=== PATIENT | male | born 1955 | race Caucasian/White ===

== ENCOUNTER 2020-03-30 20:54 | Emergency (ER) | payer MEDICARE, MEDICAID, SELFPAY ==
[2020-03-30 20:55] VITALS: BP 132/86; PULSE 111; RESP 20; TEMP 37.1; O2SAT 100; BMI 19.3
--- NOTE | 2020-03-30 21:01 | XR_ITS ---
WS: [id number] XR chest 1V portable [id number] REASON FOR EXAM: sob FINDINGS: Prominent mass defect in the left lung is again noted. Compared to previous exam of January 262018 there is now evidence of extensive left pleural effusion. The right lung shows hyperaeration and changes of emphysema. A PICC line is seen extending from the right side. XR/XR chest 1V portable [id number] IMPRESSION: PICC line in good position. Mass in the left upper lung increased since previous exam Left pleural effusion
--- NOTE | 2020-03-30 21:02 | ED_ITS ---
HPI - SOB/Dyspnea General: Chief Complaint: Shortness of Breath/Dyspnea Stated Complaint: RESPIRATORY DISTRESS Time Seen by Provider: 03/30/20 20:57 Source: patient and EMS Mode of arrival: EMS Limitations: no limitations History of Present Illness: HPI Narrative: 64-year-old male with a history of lung cancer. Patient had 4 doses of chemotherapy 1 year ago and states he no lo nger receives any treatment. He states oncologist wanted him to do radiation but he refused. He states he has been having increasing shortness of breath over the last month with it getting much worse over the last week. Patient came in by EMS and oxygen saturation on room air was 95%. He states he just has had increasing difficulty to breathe. He is a smoker and has a history of COPD as well. Patient is able speak in full senses here and has no acute distress. MD elicited complaint: shortness of breath Pertinent past history: COPD Onset (ago): day(s) Associated symptoms: Deny abdominal pain, chest pain, fever(s), nausea or vomiting Review of Systems Const: Denies: fever(s), chills, body aches or change in appetite Eyes: Denies: blurry vision or eye discomfort ENMT: Denies: throat pain or dental pain Card: Denies: chest pain Resp: Reports: dyspnea GI: Denies: abdominal pain, nausea, vomiting or diarrhea : Denies: dysuria Musc: Denies: neck pain or back pain Skin/Breast: Denies: rash Neuro: Denies: headache(s) Psych: Denies: depression Suresh/Lymph: Denies: easy bruising All/Imm: Denies: urticaria PFSH ED PFSH: Social History Smoking and tobacco status: former smoker Physical Exam Const: COMMON NORMALS: no acute distress and patient oriented x3 GENERAL APPEARANCE: ill appearing and frail appearing HENMT: COMMON NORMALS: normocephalic and atraumatic HEAD & SCALP: normocephalic and atraumatic Eye: COMMON NORMALS: Equal, round and reactive pupils present and EOMs intact bilaterally PUPIL: Yes Equal, round and reactive pupils present Neck/C-Spine: COMMON NORMALS: full ROM and supple Chest: COMMONS NORMALS: normal inspection of the chest and normal palpation of entire chest wall Resp: COMMON NORMALS: normal respiratory effort, No retractions and No use of accessory muscles AUSCULTATION: wheezes Cardio: COMMON NORMALS: regular rate, regular rhythm and No murmurs present (Cardio) RATE: regular rate RHYTHM: regular rhythm GI: COMMON NORMALS: Normal to inspection, nondistended, normoactive bowel sounds present, Soft to palpation, non-tender and no masses PALPATION: Yes Soft to palpation Extremity: COMMON NORMALS: normal to inspection and full ROM Neuro: COMMON NORMALS: patient oriented x3, moves all extremities and no focal motor deficits Psych: COMMON NORMALS: mental status grossly normal, Normal thought process present and cooperative THOUGHT PROCESS: Normal thought process present Skin: COMMON NORMALS: no rashes or lesions noted and no wounds GENERAL SKIN EXAM: no rashes or lesions noted Course Vital Signs: Vital signs: Vital Signs Temperature 98.7 F 03/30/20 20:55 Pulse Rate 104 H 03/31/20 02:03 Respiratory Rate 18 03/31/20 02:03 Blood Pressure 128/78 03/31/20 02:03 Pulse Oximetry 98 03/31/20 00:45 MDM - SOB/Dyspnea MDM Narrative: Medical decision making narrative: Patient presents with shortness of breath likely from pleural effusion with large lung mass and pneumonia. Strongly recommended admission state patient refused and signed out AMA. Patient understands risks and has decision-making capacity. We will have him follow-up with pulmonology and start him on antibiotics. He is return if worsening. Lab Data: Labs: Lab Results 03/30/20 03/30/20 03/30/20 Range/Units 21:24 21:24 21:24 WBC 12.5 H (4.0-10.0) 10^3/ uL RBC 3.70 L (4.1-5.3) 10^6/u L Hgb 9.3 L (11.7-16.6) g/dL Hct 30.3 L (42.0-52.0) % MCV 81.9 (80-94) fL MCH 25.1 L (28.0-34.0) pg MCHC 30.7 (30.0-36.0) g/dL RDW 17.3 H (12.1-15.1) % Plt Count 415 H (130-400) 10^3/c mm MPV 8.6 (7.4-10.4) fL Neut % (Auto) 77.3 % Lymph % (Auto) 15.1 % [place] % (Auto) 6.4 % Eos % (Auto) 0.6 % Baso % (Auto) 0.2 % Neut # (Auto) 9.7 H (1.8-7.7) 10^3/u L Lymph # (Auto) 1.9 (0.8-4.8) 10^3/u L [place] # (Auto) 0.8 (0.2-0.9) 10^3/u L Eos # (Auto) 0.1 (0.0-0.8) 10^3/u L Baso # (Auto) 0.0 (0.0-0.1) 10^3/u L Nucleated RBC % (a uto) 0 % Nucleated RBCs # 0.0 /100WBC PT 14.20 H (10.5-13.3) SECO NDS INR 1.07 (0.8-1.2) D-Dimer 0.74 H (0-0.59) ug/mIFE U Sodium 127 L (136-145) mmol/L Potassium 4.8 (3.5-5.1) mmol/L Chloride 91 L (98-107) mmol/L Carbon Dioxide 25 (22-29) mmol/L Anion Gap 15.8 (5-19) BUN 7 L (8-23) mg/dL Creatinine 0.4 L (0.7-1.2) mg/dL GFR Calculation 215.2 H (90-130) mL/min Glucose 179 H (65-115) mg/dL Calculated Osmolal ity 264 L (285-295) mOsm/k g Calcium 10.4 (8.5-10.5) mg/dL Total Bilirubin 0.4 (0.15-1.2) mg/dL AST 8 (0-40) U/L ALT 8 (0-41) U/L Alkaline Phosphata se 191 H (40-130) IU/L NT-Pro-B Natriuret Pep 2712 H (0-125) pg/mL Total Protein 6.2 L (6.6-8.7) g/dL Albumin 3.2 L (3.5-5.2) g/dL Globulin 3.0 (1.3-4.6) g/dL Imaging Data^: CT Chest: Radiologist's impression: [facility] [address] [place] [address] CT Scan Report Signed Patient: Bigg De La Torre Unit #: [id number] : 1955 Age/Sex: 64 / M ADM Date: 03/30/20 Loc: ER Room/Bed: Attending Dr: Ordering Provider/Ordering MD: Mellisa Fernando MD Date of Service: 03/30/20 Procedure(s): CT angio chest PE protcl [id number] Accession Number(s): [id number] Report Number: [id number] PROCEDURE INFORMATION: Exam: CT Angiography Chest With Contrast Exam date and time: 03/30/2020 10:35 PM Age: 64 years old Clinical indication: Dyspnea and shortness of breath; Prior surgery; Surgery type: Port; Patient HX: HX lung CA TECHNIQUE: Imaging protocol: Computed tomographic angiography of the chest with intravenous contrast. 3D rendering: MIP and/or 3D reconstructed images were created by the technologist. Radiation optimization: All CT scans at this facility use at least one of these dose optimization techniques: automated exposure control; mA and/or kV adjustment per patient size (includes targeted exams where dose is matched to clinical indication); or iterative reconstruction. Contrast material: VIOLETTA 350; Contrast volume: 95 ml; Contrast route: 20G; COMPARISON: CT chest w con* [id number] 12/21/2018 3:55 PM RADIATION DOSE METRICS: Total DLP: 621.3 mGy-cm FINDINGS: Tubes, catheters and devices: Right chest port line tip is in the mid SVC. Pulmonary arteries: High-grade stenosis of the superior lingual segmental pulmonary artery (see series 2, image 244). There is adequate contrast opacification of the pulmonary arteries for evaluation to the subsegmental level. There is no filling defect to suggest embolism. Aorta: There is severe aortic atherosclerotic disease. There is extensive ulcerated plaque in the aortic arch and distal descending aorta. No aneurysm or dissection. Lungs: Multiple peripherally enhancing lung masses with surrounding consolidation. The largest is a left lower lobe mass measuring 6.3 x 5.4 cm on axial series 2, image 323. There are additional lesions in the left upper lobe and in the left hilum. There is severe upper lung predominant centrilobular emphysema. There is a macro lobulated spiculated mass in the right upper lobe measuring 3.2 x 2.2 cm on axial series 2, image 211. There is mild interlobular septal thickening in the right lung base. There is diffuse central bronchial wall thickening in the right lung. Pleural space: Moderate size loculated left pleural effusion. Trace right pleural effusion. Heart: There is moderate cardiac enlargement. There is asymmetric enlargement of the left ventricle. There is no pericardial effusion. There is moderate coronary artery calcification. Circumflex coronary artery stent noted. Lymph nodes: No enlarged discrete mediastinal or hilar nodes. There is confluent soft tissue density in the left hilum extending into the subcarinal region. Spleen: Splenic size is normal. There are scattered calcifications consistent with healed granulomas. Adrenals: There is hypertrophy of the left adrenal gland. Bones/joints: Unremarkable. No acute fracture. Soft tissues: Unremarkable. CT/CT angio chest PE protcl [id number] IMPRESSION: 1. 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 Findings are markedly progressive since 12/21/2018. 2. No pulmonary embolism. 3. Mild interstitial edema. 4. Increased size of a spiculated right upper lobe mass since 12/21/2018, also consistent with a neoplastic lesion. 5. Large loculated left pleural effusion. 6. Trace right pleural effusion. 7. Severe aortic atherosclerotic disease with extensive ulcerated plaque in the thoracic and upper abdominal aorta. EKG Data^: EKG 1: Attestation: I personally reviewed and interpreted this EKG as follows: EKG Interpretation Date: 03/30/20 EKG interpretation time: 21:06 Interpretation: Has tach heart rate [address] or T wave abnormalities QRS 109 QTc 387 Discharge Plan Discharge Patient Disposition: Home, Self-Care Clinical Impression: Lung mass, Pneumonia, Pleural effusion Condition: Stable Prescriptions: New Levaquin 750 mg tablet 750 mg PO DAILY 7 Days RF: 0 Discharge Orders: Discharge Order (Routine); Ordered 03/31/20 Ordered By: Mellisa Fernando Referrals: Bry Bond [Primary Care Provider] - Deacon Elliott MD [Physician] - 4-7 days Discharge Diet: Advance as tolerated Discharge Activity: Resume usual activity Patient Instructions: Pleural Effusion (ED) Discharge Date/Time: 03/31/20 02:05 Coding Level of Care Code ED [employer] Professional for Chg Fwd Exam Comprehensive
--- NOTE | 2020-03-30 21:10 | PC.NURSE ---
EKG done at 2105 and shown to ER doctor
[2020-03-30 21:29] VITALS: PULSE 106; RESP 22; O2SAT 100
[2020-03-30] MEDS: ipratropium-albuterol 3 mL Neb INHALATION (21:29)
[2020-03-30 21:32] VITALS: PULSE 107; RESP 22; O2SAT 100
[2020-03-30 21:39] LABS: Basophils % 0.2 %; Eosinophils # 0.1 10^3/uL (0.0-0.8); Eosinophils % 0.6 %; Hematocrit 30.3 % (42.0-52.0); Hemoglobin 9.3 g/dL (11.7-16.6); Lymphocytes # 1.9 10^3/uL (0.8-4.8); Lymphocytes % 15.1 %; Mean Corpuscular HGB Conc 30.7 g/dL (30.0-36.0); Mean Corpuscular Hemoglobin 25.1 pg (28.0-34.0); Mean Corpuscular Volume 81.9 fL (80-94); Mean Platelet Volume 8.6 fL (7.4-10.4); Monocytes # 0.8 10^3/uL (0.2-0.9); Monocytes % 6.4 %; Neutrophils # 9.7 10^3/uL (1.8-7.7); Neutrophils % 77.3 %; Nucleated Red Blood Cells % 0 %; Platelet Count 415 10^3/cmm (130-400); Red Cell Distribution Width 17.3 % (12.1-15.1); White Blood Count 12.5 10^3/uL (4.0-10.0)
--- NOTE | 2020-03-30 21:48 | CTR_ITS ---
PROCEDURE INFORMATION: Exam: CT Angiography Chest With Contrast Exam date and time: 03/30/2020 10:35 PM Age: 64 years old Clinical indication: Dyspnea and shortness of breath; Prior surgery; Surgery type: Port; Patient HX: HX lung CA TECHNIQUE: Imaging protocol: Computed tomographic angiography of the chest with intravenous contrast. 3D rendering: MIP and/or 3D reconstructed images were created by the technologist. Radiation optimization: All CT scans at this facility use at least one of these dose optimization techniques: automated exposure control; mA and/or kV adjustment per patient size (includes targeted exams where dose is matched to clinical indication); or iterative reconstruction. Contrast material: VIOLETTA 350; Contrast volume: 95 ml; Contrast route: 20G; COMPARISON: CT chest w con* [id number] 12/21/2018 3:55 PM RADIATION DOSE METRICS: Total DLP: 621.3 mGy-cm FINDINGS: Tubes, catheters and devices: Right chest port line tip is in the mid SVC. Pulmonary arteries: High-grade stenosis of the superior lingual segmental pulmonary artery (see series 2, image 244). There is adequate contrast opacification of the pulmonary arteries for evaluation to the subsegmental level. There is no filling defect to suggest embolism. Aorta: There is severe aortic atherosclerotic disease. There is extensive ulcerated plaque in the aortic arch and distal descending aorta. No aneurysm or dissection. Lungs: Multiple peripherally enhancing lung masses with surrounding consolidation. The largest is a left lower lobe mass measuring 6.3 x 5.4 cm on axial series 2, image 323. There are additional lesions in the left upper lobe and in the left hilum. There is severe upper lung predominant centrilobular emphysema. There is a macro lobulated spiculated mass in the right upper lobe measuring 3.2 x 2.2 cm on axial series 2, image 211. There is mild interlobular septal thickening in the right lung base. There is diffuse central bronchial wall thickening in the right lung. Pleural space: Moderate size loculated left pleural effusion. Trace right pleural effusion. Heart: There is moderate cardiac enlargement. There is asymmetric enlargement of the left ventricle. There is no pericardial effusion. There is moderate coronary artery calcification. Circumflex coronary artery stent noted. Lymph nodes: No enlarged discrete mediastinal or hilar nodes. There is confluent soft tissue density in the left hilum extending into the subcarinal region. Spleen: Splenic size is normal. There are scattered calcifications consistent with healed granulomas. Adrenals: There is hypertrophy of the left adrenal gland. Bones/joints: Unremarkable. No acute fracture. Soft tissues: Unremarkable. CT/CT angio chest PE protcl [id number] IMPRESSION: 1. 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 Findings are markedly progressive since 12/21/2018. 2. No pulmonary embolism. 3. Mild interstitial edema. 4. Increased size of a spiculated right upper lobe mass since 12/21/2018, also consistent with a neoplastic lesion. 5. Large loculated left pleural effusion. 6. Trace right pleural effusion. 7. Severe aortic atherosclerotic disease with extensive ulcerated plaque in the thoracic and upper abdominal aorta. Radiation Dose CTDIVOL = (mGy): DLP = 621.3 (mGy-cm)
[2020-03-30 22:00] LABS: INR 1.07 (0.8-1.2)
[2020-03-30 22:02] LABS: D Dimer 0.74 ug/mIFEU (0-0.59)
[2020-03-30 22:08] VITALS: BP 132/86; PULSE 109; RESP 26; O2SAT 99
[2020-03-30 22:27] LABS: Alanine Aminotransferase 8 U/L (0-41); Albumin Level 3.2 g/dL (3.5-5.2); Alkaline Phosphatase 191 IU/L (40-130); Anion Gap 15.8 (5-19); Aspartate Amino Transferase 8 U/L (0-40); Blood Urea Nitrogen 7 mg/dL (8-23); Calcium 10.4 mg/dL (8.5-10.5); Carbon Dioxide 25 mmol/L (22-29); Chloride 91 mmol/L (98-107); Creatinine Clr Calc Pharmacy 77.1507; Glomerular Filtration Rate 215.2 mL/min (90-130); Glucose 179 mg/dL (65-115); NT Pro B Type Natriuretic Pept 2712 pg/mL (0-125); Osmolality Calculated 264 mOsm/kg (285-295); Potassium 4.8 mmol/L (3.5-5.1); Sodium 127 mmol/L (136-145); Total Bilirubin 0.4 mg/dL (0.15-1.2); Total Protein 6.2 g/dL (6.6-8.7)
[2020-03-30] MEDS: diphenhydrAMINE 50 mg/mL SDV 1mL IVP (23:03)
[2020-03-30] MEDS: hydrocortisone 100 mg/2 mL SDV IVP (23:03)
[2020-03-30 23:06] VITALS: BP 122/78; PULSE 108; RESP 23; O2SAT 97
[2020-03-30] MEDS: iohexol 350 mg/mL 100 mL Btl IV (23:37)
[2020-03-31 00:45] VITALS: BP 122/78; PULSE 112; RESP 21; O2SAT 98
--- NOTE | 2020-03-31 01:41 | ECG_ITS ---
Measurements Intervals [place] Rate: 111 P: 71 RI: 131 QRS: 34 QRSD: 109 T: 1 QT: 322 QTc: 438 SINUS TACHYCARDIA LOW QRS VOLTAGE IN EXTREMITY LEADS POSSIBLE ANTERIOR MYOCARDIAL INFARCTION , OF INDETERMINATE AGE Compared to ECG 02/19/2019 09:30:11 Low QRS voltage now present Myocardial infarct finding now present Sinus rhythm no longer present Ventricular premature complex(es) no longer present T-wave abnormality no longer present Possible ischemia no longer present Electronically Signed On 03-31-2020 18:07:35 CDT by Magi Valle M.D. [email or web address]
[2020-03-31 02:03] VITALS: BP 128/78; PULSE 104; RESP 18
--- NOTE | 2020-03-31 02:03 | PC.NURSE ---
Pt. IV's D/C'd intact. Pressure dressing in place
--- NOTE | 2020-04-04 15:18 | DCPLANNER ---
supplier development manager had message to schedule a follow up appointment for patient with [facility]. supplier development manager called [facility], spoke with Lis, gave clinic patients information. A follow up appointment was scheduled for , April 13, 2020 at 2:[address] Elliott. supplier development manager called patient to give patient the appointment information. supplier development manager called [phone], patient does not have a voicemail set up. supplier development manager mailed patient a letter regarding appointment information.
--- NOTE | 2020-04-25 14:22 | DCPLANNER ---
Patient did not attend appointment scheduled for 04.13.20 with [facility].
== END 2020-03-31 02:05 | disposition home or self-care (01) ==
PROVIDERS: Emergency Provider Emergency Medicine; Family Provider Family Medicine; PCP Family Medicine
DX: J18.9 Pneumonia, unspecified organism (principal); J98.4 Other disorders of lung; J90 Pleural effusion, not elsewhere classified; Z87.891 Personal history of nicotine dependence
CPT/HCPCS: 12345; 71045; 71275; 80053; 83880; 85025; 85378; 85610; 93005; 94640; 96374; 96375; 99282; 99284; J1200; J1720; J2930; J7611; Q9967

== ENCOUNTER 2020-04-19 18:35 | Inpatient (IN) | payer MEDICARE, MEDICAID, SELFPAY ==
[2020-04-19] VITALS (7 sets, daily range): BP systolic 131–152; BP diastolic 70–81; PULSE 100–111; RESP 18–20; TEMP 36.3–37.3; O2SAT 91–99; BMI 21.9
--- NOTE | 2020-04-19 18:58 | XRR_ITS ---
PROCEDURE INFORMATION: Exam: XR Chest, 1 View Exam date and time: 04/19/2020 7:19 PM Age: 64 years old Clinical indication: Shortness of breath; Prior surgery; Surgery type: Port; Additional info: SOB, weakness TECHNIQUE: Imaging protocol: XR of the chest Views: 1 view. COMPARISON: CR XR chest 1V portable [id number] 03/30/2020 9:28 PM FINDINGS: Tubes, catheters and devices: Chest port via the right subclavian approach with the tip overlying the superior vena cava. Lungs: Complete opacification left hemithorax with volume loss and hyperinflation of the right lung with shift of the mediastinum to the left. Progressive atelectasis. Pleural fluid also suspected. Pleural space: See Lungs finding. Heart: Obscured on the left Bones/joints: Unremarkable. XR/XR chest 1V portable [id number] IMPRESSION: Complete opacification left hemithorax with volume loss and hyperinflation of the right lung with shift of the mediastinum to the left. Progressive atelectasis. Pleural fluid also suspected. Likely postobstructive. Correlate regarding surgery.
[2020-04-19 19:07] LABS: Add Urine Microscopic? NO
[2020-04-19 19:11] LABS: Basophils % 0.3 %; Eosinophils # 0.1 10^3/uL (0.0-0.8); Eosinophils % 0.8 %; Hematocrit 33.2 % (42.0-52.0); Hemoglobin 10.2 g/dL (11.7-16.6); Lymphocytes # 2.3 10^3/uL (0.8-4.8); Lymphocytes % 17.8 %; Mean Corpuscular HGB Conc 30.7 g/dL (30.0-36.0); Mean Corpuscular Hemoglobin 24.1 pg (28.0-34.0); Mean Corpuscular Volume 78.5 fL (80-94); Mean Platelet Volume 8.7 fL (7.4-10.4); Monocytes # 0.7 10^3/uL (0.2-0.9); Monocytes % 5.1 %; Neutrophils # 9.8 10^3/uL (1.8-7.7); Neutrophils % 75.6 %; Nucleated Red Blood Cells % 0 %; Platelet Count 453 10^3/cmm (130-400); Red Blood Count 4.23 10^6/uL (4.1-5.3); Red Cell Distribution Width 16.7 % (12.1-15.1)
[2020-04-19 19:22] LABS: Bilirubin Urine 1+ (NEGATIVE); Blood Urine Neg (Negative); Glucose Urine UA Norm (Normal); Ketones Urine 1+ (Negative); Leukocyte Esterase Urine Negative (Negative); Nitrate Urine Negative (Negative); Protein Urine Neg (Negative); Specific Gravity, Urine 1.015 (1.005-1.030); Urine Appearance Clear (CLEAR); Urine Color Yellow (Yellow); Urobilinogen Urine 8 mg/dL (Negative); pH Urine 7 (5-7)
--- NOTE | 2020-04-19 19:25 | CTR_ITS ---
PROCEDURE INFORMATION: Exam: CT Head Without Contrast Exam date and time: 04/19/2020 7:26 PM Age: 64 years old Clinical indication: Altered mental status/memory loss; Additional info: AMS TECHNIQUE: Imaging protocol: Computed tomography of the head without contrast. Radiation optimization: All CT scans at this facility use at least one of these dose optimization techniques: automated exposure control; mA and/or kV adjustment per patient size (includes targeted exams where dose is matched to clinical indication); or iterative reconstruction. COMPARISON: MRI Head w/wo* [id number] 12/31/2018 5:50 PM RADIATION DOSE METRICS: Total DLP (mGy-cm): 819.47 FINDINGS: Brain: No current evidence for acute or active intracranial pathologic process, trauma, or hemorrhage. No visible evidence of a recent infarction. 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 Focal atrophic changes and encephalomalacia at the old infarction sites. Atrophic changes, without ventriculomegaly, greater than that anticipated for patient's chronological age. Ventricles: Unremarkable for age. No ventriculomegaly. Bones/joints: Unremarkable. No acute fracture. Sinuses: Visualized sinuses are unremarkable. No fluid levels. Mastoid air cells: Visualized mastoid air cells are well aerated. Soft tissues: Unremarkable. CT/CT head wo con* [id number] IMPRESSION: No current visible evidence of active or acute intracranial pathologic process. Radiation Dose CTDIVOL = (mGy): DLP = 819.47 (mGy-cm)
[2020-04-19 19:30] LABS: Alanine Aminotransferase < 5 U/L (0-41); Albumin Level 2.9 g/dL (3.5-5.2); Alkaline Phosphatase 202 IU/L (40-130); Anion Gap 15.9 (5-19); Aspartate Amino Transferase 10 U/L (0-40); Blood Urea Nitrogen 7 mg/dL (8-23); Calcium 11.9 mg/dL (8.5-10.5); Carbon Dioxide 29 mmol/L (22-29); Chloride 90 mmol/L (98-107); Glucose 106 mg/dL (65-115); Osmolality Calculated 268 mOsm/kg (285-295); Potassium 3.9 mmol/L (3.5-5.1); Sodium 131 mmol/L (136-145); Total Bilirubin 0.5 mg/dL (0.15-1.2); Total Protein 5.9 g/dL (6.6-8.7)
--- NOTE | 2020-04-19 19:59 | ED_ITS ---
HPI - Altered Mental Status General: Chief Complaint: Altered Mental Status Stated Complaint: WEAKNESS Time Seen by Provider: 04/19/20 18:41 Source: family and EMS Mode of arrival: EMS Limitations: altered mental status History of Present Illness: HPI narrative: 64-year-old male with a history of lung cancer that is been refusing all treatments. Patient's family states that he has been increasingly altered and weak and states they are unable to take care of anymore. Patient is unable to give any history and is quite confused. He has had no fevers. Review of Systems General: Reports: ROS unobtainable due to mental status PFS ED PFSH: Medical History (Updated 04/19/20 @ 20:45 by Mellisa Fernando MD) COPD (chronic obstructive pulmonary disease) Coronary artery disease Coronary stent patent CVA (cerebral vascular accident) Left parietal lobe infarct Degenerative joint disease Leg fracture, right Lung mass Peripheral arterial disease Recurrent left pleural effusion Squamous cell lung cancer 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+ Type 2 diabetes mellitus Surgical History (Updated 04/19/20 @ 20:32 by Joelle Seaman MD) H/O cardiac catheterization H/O hemorrhoidectomy S/P PICC central line placement Right-sided Placed 02/12 Family History (Updated 04/19/20 @ 20:30 by Joelle Seaman MD) Mother Cancer Leukemia Social History (Updated 04/19/20 @ 20:30 by Joelle Seaman MD) Smoking and tobacco status: former smoker Alcohol intake: never Substance/Drug Use: never Lives independently: No Household members: spouse and family Housing: House Physical Exam Const: COMMON NORMALS: negative for patient oriented x3 EXAM LIMITATIONS: altered mental status GENERAL APPEARANCE: disheveled, ill appearing and frail appearing HENMT: COMMON NORMALS: normocephalic and atraumatic HEAD & SCALP: normocephalic and atraumatic Eye: COMMON NORMALS: Equal, round and reactive pupils present and EOMs intact bilaterally PUPIL: Yes Equal, round and reactive pupils present Neck/C-Spine: COMMON NORMALS: full ROM and supple Chest: COMMONS NORMALS: normal inspection of the chest and normal palpation of entire chest wall Resp: COMMON NORMALS: normal respiratory effort, No retractions and No use of accessory muscles OTHER: Decreased breath sounds on the left Cardio: COMMON NORMALS: regular rate, regular rhythm and No murmurs present (Cardio) RATE: regular rate RHYTHM: regular rhythm GI: COMMON NORMALS: Normal to inspection, nondistended, normoactive bowel sounds present, Soft to palpation, non-tender and no masses PALPATION: Yes Soft to palpation Extremity: COMMON NORMALS: normal to inspection and full ROM Neuro: COMMON NORMALS: moves all extremities and no focal motor deficits; negative for patient oriented x3 Psych: COMMON NORMALS: negative for mental status grossly normal, negative for Normal thought process present and negative for cooperative THOUGHT PROCESS: abnormal Skin: COMMON NORMALS: no rashes or lesions noted and no wounds GENERAL SKIN EXAM: no rashes or lesions noted Course Vital Signs: Vital signs: Vital Signs Temperature 99.1 F 04/19/20 18:37 Pulse Rate 111 H 04/19/20 20:03 Respiratory Rate 18 04/19/20 20:03 Blood Pressure 134/77 04/19/20 20:03 Pulse Oximetry 97 04/19/20 20:03 MDM - Altered Mental Status MDM Narrative: Medical decision making narrative: Bigg presents here with altered mental status likely from his invasive lung cancer. I spoke to family patient is DNR/DNI and is not been receiving chemo and refused all care. They state they are unable to take care of him anymore as he is worsened. Patient likely needs senior care placement. I spoke to hospitalist and will admit at this time. Lab Data: Labs: Lab Results 04/19/20 04/19/20 04/19/20 Range/Units 17:39 17:39 19:05 WBC 13.0 H (4.0-10.0) 10^3/ uL RBC 4.23 (4.1-5.3) 10^6/u L Hgb 10.2 L (11.7-16.6) g/dL Hct 33.2 L (42.0-52.0) % MCV 78.5 L (80-94) fL MCH 24.1 L (28.0-34.0) pg MCHC 30.7 (30.0-36.0) g/dL RDW 16.7 H (12.1-15.1) % Plt Count 453 H (130-400) 10^3/c mm MPV 8.7 (7.4-10.4) fL Neut % (Auto) 75.6 % Lymph % (Auto) 17.8 % [place] % (Auto) 5.1 % Eos % (Auto) 0.8 % Baso % (Auto) 0.3 % Neut # (Auto) 9.8 H (1.8-7.7) 10^3/u L Lymph # (Auto) 2.3 (0.8-4.8) 10^3/u L [place] # (Auto) 0.7 (0.2-0.9) 10^3/u L Eos # (Auto) 0.1 (0.0-0.8) 10^3/u L Baso # (Auto) 0.0 (0.0-0.1) 10^3/u L Nucleated RBC % (a uto) 0 % Nucleated RBCs # 0.0 /100WBC Sodium 131 L (136-145) mmol/L Potassium 3.9 (3.5-5.1) mmol/L Chloride 90 L (98-107) mmol/L Carbon Dioxide 29 (22-29) mmol/L Anion Gap 15.9 (5-19) BUN 7 L (8-23) mg/dL Creatinine 0.3 L (0.7-1.2) mg/dL GFR Calculation 300.0 H (90-130) mL/min Glucose 106 (65-115) mg/dL Calculated Osmolal ity 268 L (285-295) mOsm/k g Calcium 11.9 H (8.5-10.5) mg/dL Total Bilirubin 0.5 (0.15-1.2) mg/dL AST 10 (0-40) U/L ALT < 5 (0-41) U/L Alkaline Phosphata se 202 H (40-130) IU/L Total Protein 5.9 L (6.6-8.7) g/dL Albumin 2.9 L (3.5-5.2) g/dL Globulin 3.0 (1.3-4.6) g/dL Urine Color Yellow (Yellow) Urine Appearance Clear (CLEAR) Urine pH 7 (5-7) Ur Specific Gravit y 1.015 (1.005-1.030) Urine Protein Neg (Negative) Urine Glucose (UA) Norm (Normal) Urine Ketones 1+ H (Negative) Urine Blood Neg (Negative) Urine Nitrate Negative (Negative) Urine Bilirubin 1+ H (NEGATIVE) Urine Urobilinogen 8 H (Negative) mg/dL Ur Leukocyte Lisa ase Negative (Negative) Imaging Data^: CXR: Attestation: I personally reviewed and interpreted this imaging study as follows: My impression: large left effussion and mass CT Head: Radiologist's impression: [facility] [address] [place] [address] CT Scan Report Signed Patient: Bigg De La Torre Unit #: [id number] : [id number] Age/Sex: 64 / M ADM Date: 04/19/20 Loc: ER Room/Bed: Attending Dr: Ordering Provider/Ordering MD: Mellisa Fernando MD Date of Service: 04/19/20 Procedure(s): CT head wo con* [id number] Accession Number(s): [id number] Report Number: [id number] PROCEDURE INFORMATION: Exam: CT Head Without Contrast Exam date and time: 04/19/2020 7:26 PM Age: 64 years old Clinical indication: Altered mental status/memory loss; Additional info: AMS TECHNIQUE: Imaging protocol: Computed tomography of the head without contrast. Radiation optimization: All CT scans at this facility use at least one of these dose optimization techniques: automated exposure control; mA and/or kV adjustment per patient size (includes targeted exams where dose is matched to clinical indication); or iterative reconstruction. COMPARISON: MRI Head w/wo* [id number] 12/31/2018 5:50 PM RADIATION DOSE METRICS: Total DLP (mGy-cm): 819.47 FINDINGS: Brain: No current evidence for acute or active intracranial pathologic process, trauma, or hemorrhage. No visible evidence of a recent infarction. 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 Focal atrophic changes and encephalomalacia at the old infarction sites. Atrophic changes, without ventriculomegaly, greater than that anticipated for patient's chronological age. Ventricles: Unremarkable for age. No ventriculomegaly. Bones/joints: Unremarkable. No acute fracture. Sinuses: Visualized sinuses are unremarkable. No fluid levels. Mastoid air cells: Visualized mastoid air cells are well aerated. Soft tissues: Unremarkable. CT/CT head wo con* [id number] IMPRESSION: No current visible evidence of active or acute intracranial pathologic process. Discharge Plan Discharge Patient Disposition: Admitted As Inpatient Clinical Impression: Lung mass, Altered mental status Condition: Stable Referrals: Bry Bond [Primary Care Provider] - Coding Level of Care Code ED Master Control Engineer for Chg Fwd Exam Comprehensive
--- NOTE | 2020-04-19 20:25 | P.HP_ITS ---
Providers/Chief Complaint Primary Care Provider: Bry Bond Chief Complaint: WEAKNESS History of Present Illness Bigg De La Torre is a 64 year old male who has history of poorly differentiated squamous cell carcinoma left lung needle biopsy done on 12/15 PDL 1+, recurrent left pleural effusion without significant metastatic evidence, refused chemotherapy after few cycles, brought in by his family today because of gradual worsening at home. Patient is unable to give me much detail, I called his daughter. Daughter is stating that at home he has refused home health services, he has been declining gradually, lately he has not eaten much, is basically bedbound these days, he has soiled himself with urine multiple times, he has been complaining of his back pain. He is more confused and lethargic than usual. Family has not noticed any temperature, productive cough but thinks his breathing is getting labored. They are not able to take care of him at home and would prefer home hospice for him as long-term plan. 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 He talked with his daughter to state that he wants to come home He has mild leukocytosis, chest x-ray shows complete whiteout of left lung, CT head did not reveal metastatic changes, I have requested thoracic and lumbar CT without contrast Review of Systems Const: Reports: chills, body aches, change in appetite, change in weight, fatigue, malaise and night sweats Eyes: Denies: change in vision ENMT: Denies: throat pain Card: Denies: chest pain Resp: Reports: dyspnea and non-productive cough GI: Denies: abdominal pain : Denies: flank pain Musc: Reports: back pain Skin/Breast: Denies: rash Neuro: Reports: headache(s) and weakness in extremities Psych: Reports: anxiety and depression Endo: Denies: polyuria Suresh/Lymph: Denies: easy bruising All/Imm: Denies: urticaria Medications/Allergies Home Medications Medication Instructions Recorded Confirmed Last Taken Type albuterol sulfate [Ventolin HFA] See Rx Instructions .ROUTE .COMPLEX 04/19/20 04/19/20 Unknown History alprazolam 0.5 mg PO TID PRN 04/19/20 04/19/20 Unknown History budesonide-formoterol [Symbicort] See Rx Instructions .ROUTE .COMPLEX 04/19/20 04/19/20 Unknown History furosemide See Rx Instructions .ROUTE .COMPLEX 04/19/20 04/19/20 Unknown History gabapentin See Rx Instructions .ROUTE .COMPLEX 04/19/20 04/19/20 Unknown History gemfibrozil See Rx Instructions .ROUTE .COMPLEX 04/19/20 04/19/20 Unknown History glipizide 10 mg PO BID 04/19/20 04/19/20 Unknown History hydrocodone-acetaminophen 1 tab PO Q8H PRN 04/19/20 04/19/20 Unknown History lisinopril See Rx Instructions .ROUTE .COMPLEX 04/19/20 04/19/20 Unknown History naloxone [Narcan] 4 mg INTRANASAL .COMPLELX 04/19/20 04/19/20 Unknown History pantoprazole 40 mg PO DAILY 04/19/20 04/19/20 04/19/20 History risperidone See Rx Instructions .ROUTE .COMPLEX 04/19/20 04/19/20 Unknown History tamsulosin 0.4 mg PO DAILY 04/19/20 04/19/20 Unknown History Allergies Allergy/AdvReac Type Severity Reaction Status Date / Time Sulfa (Sulfonamide Allergy Intermediate Unknown Verified 04/19/20 18:55 Antibiotics) aspirin Allergy Unknown Verified 04/19/20 18:55 morphine Allergy Unknown Verified 04/19/20 18:55 Penicillins Allergy Unknown Verified 04/19/20 18:55 PFSH Acute PFSH: Medical History COPD (chronic obstructive pulmonary disease) Coronary artery disease Coronary stent patent CVA (cerebral vascular accident) Left parietal lobe infarct Degenerative joint disease Leg fracture, right Lung mass Peripheral arterial disease Recurrent left pleural effusion Squamous cell lung cancer 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+ Type 2 diabetes mellitus Surgical History H/O cardiac catheterization H/O hemorrhoidectomy S/P PICC central line placement Right-sided Placed 02/12 Family History Mother Cancer Leukemia Social History Smoking and tobacco status: former smoker Alcohol intake: never Substance/Drug Use: never Lives independently: No Household members: spouse and family Housing: House Vitals/I&O/Wt Last Vital Signs Temp 99.1 F 04/19/20 18:37 Pulse 111 H 04/19/20 20:03 Resp 18 04/19/20 20:03 BP 134/77 04/19/20 20:03 Pulse Ox 97 04/19/20 20:03 Weight last 48 hrs Weight 63.503 kg Physical Exam Narrative: EXAM NARRATIVE: Head to toe examination Patient looks malnourished and emaciated Dehydrated appearing Edentulous No active respiratory distress He is confused 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, oriented to place He is not able to lift his left leg against gravity He has good sensations in medial side of his thighs S1, S2 no tachycardia or signs of heart failure Diminished breath sounds bilaterally left greater than right, crackles bibasilar Dull to percussion both sides left >rt Abdomen soft nontender nondistended Patient appears confused Digital clubbing Data : 04/19/20 17:39 04/19/20 17:39 A&P Assessment and plan (1) Altered mental status: Status: Acute (2) Recurrent left pleural effusion: Status: Acute (3) Squamous cell lung cancer: Status: Acute (4) Lung mass: Status: Acute (5) Severe muscle deconditioning: Status: Acute (6) Sarcopenia: Status: Acute (7) DNR (do not resuscitate): Status: Acute Additional A&P Information Altered mental status/confusion This seems metabolic, CT head did not reveal metastatic changes He appears dehydrated Oriented to place and person but not time We will request CT lumbar and thoracic area to rule out vertebral metastatic changes because of his recent urinary incontinence and inability to move independently, however no active cauda equina syndrome signs Patient would need hospice care and family wants home hospice option, will consult case management Worsening left-sided pleural effusion I highly doubt will be able to do thoracentesis because of his history of malignancy No active resp distress Will use BiPAP to decrease work of breathing Patient is DNR/DNI I would hold Lasix for now because of his extreme dehydration Patient has been afebrile, would not start antibiotics at this point, no signs of sepsis on admission, family stating that he was treated for pneumonia few weeks back Squamous cell lung cancer Patient has refused chemotherapy and home health Family is requesting home hospice Patient carries guarded prognosis with worsening of pleural effusion Family has been updated and has good insight to his condition Severe malnourishment with Sarcopenia Consistent carb diet with supplement CODE STATUS DNR/DNI Consistent carb diet Case management consulted Attestations Medical Necessity Statement*: Because of worsening of left-sided pleural effusion and deconditioning I am anticipating his stay will cross more than 2 midnights, currently I am holding on thoracentesis for now, will monitor in extremity 4 hours if we need to do thoracentesis for symptomatic relief Will need hospice evaluate Time Spent in Patient Care: (>than 50% of time spent in counselling and/or direct pt care on unit) . 60mins Coding Level of Care Code Acute Transfer Controller for Erum Fwd Diagnoses Altered mental status R41.82 Recurrent left pleural effusion J90 Squamous cell lung cancer C34.90 Lung mass R91.8 Severe muscle deconditioning R29.898 Sarcopenia M62.84 DNR (do not resuscitate) Z66
--- NOTE | 2020-04-19 20:56 | CTR_ITS ---
PROCEDURE INFORMATION: Exam: CT Thoracic Spine Without Contrast Exam date and time: 04/19/2020 9:07 PM Age: 64 years old Clinical indication: Pain in thoracic spine TECHNIQUE: Imaging protocol: Computed tomography images of the thoracic spine without contrast. Radiation optimization: All CT scans at this facility use at least one of these dose optimization techniques: automated exposure control; mA and/or kV adjustment per patient size (includes targeted exams where dose is matched to clinical indication); or iterative reconstruction. COMPARISON: No relevant prior studies available. RADIATION DOSE METRICS: Total DLP (mGy-cm): 970.81 FINDINGS: Vertebrae: No visible fracture. Discs/Spinal canal/Neural foramina: No visible disc herniation or significant posterior disc bulge that would result in significant central canal stenosis or neural foraminal carotid mint. Other bones/joints: No visible acute osseous abnormality. No visible osteolytic or osteoblastic destructive process. Age-appropriate degenerative disease and degenerative disc disease. Osteopenia. Pedicles and posterior elements appear intact. Soft tissues: Unremarkable for age. Vasculature: The thoracic aorta within the field of view appears nonaneurysmal. Moderately advanced arterial sclerotic disease. Pleural space: Known left lung carcinoma with a large left pleural effusion and complete whiteout of the left hemithorax. Spleen: Splenic calcified granulomas of antecedent disease. CT/CT thoracic spin wo con* [id number] IMPRESSION: 1. No visible acute osseous abnormality. 2. No visible osteolytic or osteoblastic destructive process. 3. Age-appropriate degenerative disease and degenerative disc disease. 4. Known left lung carcinoma with large left p. leural effusion Radiation Dose CTDIVOL = (mGy): DLP = 970.81 (mGy-cm)
--- NOTE | 2020-04-19 20:56 | CTR_ITS ---
PROCEDURE INFORMATION: Exam: CT Lumbar Spine Without Contrast Exam date and time: 04/19/2020 9:07 PM Age: 64 years old Clinical indication: Low back pain TECHNIQUE: Imaging protocol: Computed tomography images of the lumbar spine without contrast. Radiation optimization: All CT scans at this facility use at least one of these dose optimization techniques: automated exposure control; mA and/or kV adjustment per patient size (includes targeted exams where dose is matched to clinical indication); or iterative reconstruction. COMPARISON: No relevant prior studies available. RADIATION DOSE METRICS: Total DLP (mGy-cm): 1951.55 FINDINGS: Vertebrae: No visible osteolytic or osteoblastic destructive process. No visible fracture. Bilateral spondylolysis L4/L5 with grade 1 anterior spondylolisthesis. Old mild superior endplate deformity T12. Discs/Spinal canal/Neural foramina: Advanced degenerative disc disease with disc space height loss and vacuum disc phenomenon L4/L5. Spondylosis deformans. Facet arthrosis. No visible herniated nucleus pulposis or significant posterior annular disc bulge that would result in significant central canal stenosis or neural foraminal carotid went to result in nerve root compromise. Soft tissues: Unremarkable for age. Other findings: Osteopenia/osteoporosis. CT/CT lumbar spine wo con* [id number] IMPRESSION: 1. No visible evidence of acute osseous abnormality. 2. No visible osteolytic or osteoblastic destructive process. 3. Bilateral spondylolysis L4/L5 with grade 1 anterior spondylolisthesis. 4. Degenerative disc disease L4/L5. Radiation Dose CTDIVOL = (mGy): DLP = 1951.55 (mGy-cm)
--- NOTE | 2020-04-19 21:48 | PC.NURSE ---
informed by medical diagnostic radiographer that pt is trying to remove IV and get out of bed. IV site reinforced with 2 coban. Line flushed with saline, IV fluids running at fluid bolus rate. Warm blanket given to pt, lights dimmed. Pt calmer. RN notified
[2020-04-19] MEDS: HYDROcodone-acetaminophen 10-325 mg Tablet 1 TAB PO (22:46)
--- NOTE | 2020-04-19 23:14 | PC.NURSE ---
Arrival Note: Pt arrived from ER via gurney, moved to the floor bed with assist X4. Pt is mildly confused, answering questions appropriately at times and then all of the sudden he will ask about the dog in the room and reaches into the air. Refusing anderson placement, bipap at this time. B. redness to sacrum, will start on Q2H turn, pt verbalized understanding. Bed alarm set and call light is within reach.
[2020-04-20] VITALS (11 sets, daily range): BP systolic 108–133; BP diastolic 63–72; PULSE 18–106; RESP 13–91; TEMP 36.3–36.7; O2SAT 94–98
--- NOTE | 2020-04-20 02:10 | PC.NURSE ---
Midnight vitals were skipped so that patient could sleep. Nurse gave securities underwriter permission since patient was agitated
[2020-04-20 05:45] LABS: Anion Gap 16.7 (5-19); Blood Urea Nitrogen 7 mg/dL (8-23); Calcium 11.5 mg/dL (8.5-10.5); Carbon Dioxide 27 mmol/L (22-29); Chloride 90 mmol/L (98-107); Glomerular Filtration Rate 478.9 mL/min (90-130); Glucose 116 mg/dL (65-115); Osmolality Calculated 267 mOsm/kg (285-295); Potassium 3.7 mmol/L (3.5-5.1); Sodium 130 mmol/L (136-145)
[2020-04-20] MEDS: tamsulosin 0.4 mg Capsule PO (08:03)
[2020-04-20] MEDS: sennosides-docusate Tablet 1 TAB PO (08:03)
[2020-04-20 08:31] LABS: Basophils % 0.2 %; Eosinophils # 0.2 10^3/uL (0.0-0.8); Eosinophils % 1.6 %; Hematocrit 36.7 % (42.0-52.0); Hemoglobin 11.2 g/dL (11.7-16.6); Lymphocytes % 16.1 %; Mean Corpuscular HGB Conc 30.5 g/dL (30.0-36.0); Mean Corpuscular Hemoglobin 24.2 pg (28.0-34.0); Mean Corpuscular Volume 79.3 fL (80-94); Mean Platelet Volume 8.4 fL (7.4-10.4); Monocytes # 0.6 10^3/uL (0.2-0.9); Monocytes % 5.1 %; Neutrophils # 9.6 10^3/uL (1.8-7.7); Neutrophils % 76.4 %; Nucleated Red Blood Cells % 0 %; Platelet Count 377 10^3/cmm (130-400); Red Blood Count 4.63 10^6/uL (4.1-5.3); Red Cell Distribution Width 16.8 % (12.1-15.1); White Blood Count 12.5 10^3/uL (4.0-10.0)
[2020-04-20 09:20] LABS: Lactic Sepsis W/Reflex 1.1 mmol/L (0.5-2.2)
[2020-04-20 09:35] LABS: Estmated Average Glucose 157; Hemoglobin A1C 7.1 % (4.0-6.0)
[2020-04-20 09:39] LABS: Procalcitonin 0.13 ng/mL (0-0.5)
[2020-04-20 09:50] LABS: C Reactive Protein 84.4 mg/L (0.0-4.9)
[2020-04-20] MEDS: sodium chloride 0.9% 1,000 ML 100 ML IV ×2 (10:03→23:29)
[2020-04-20] MEDS: HYDROcodone-acetaminophen 10-325 mg Tablet 1 TAB PO ×2 (11:49→20:13)
[2020-04-20] MEDS: azithromycin 500 MG in sodium chloride 0.9% 250 ML 250 MG IV (11:49)
[2020-04-20 11:56] LABS: Glucose Point of Care 172 mg/dL (70-110)
[2020-04-20] MEDS: vancomycin 1,000 MG in sodium chloride 0.9% 250 ML 250 MG IV ×2 (12:58→23:28)
--- NOTE | 2020-04-20 14:12 | PM.PN ---
Subjective Subjective: Interval history: This morning patient is lying in bed, alert oriented x3, answering all questions appropriate, follows my commands, saturating high 90s on 2 to 3 L, normotensive, has episodes of tachycardia, no episodes of tachypnea, no retractions, no nasal flaring, chest x-ray shows complete whiteout of the left lung, no complaints of cough, no complaints of shortness of breath, patient states that he just wants to go home, he does not want to be here in the hospital Vitals/I&O/Wt Last Vital Signs Temp 98.0 F 04/20/20 11:02 Pulse 106 H 04/20/20 11:02 Resp 20 H 04/20/20 11:02 BP 133/72 04/20/20 11:02 Pulse Ox 97 04/20/20 11:02 04/19/20 04/20/20 04/20/20 22:59 06:59 14:59 Intake Total 100 / 100 Output Total 600 / 600 Balance -600 / -600 100 / 100 Weight last 48 hrs Weight 63.503 kg Physical Exam Const: COMMON NORMALS: no acute distress and patient oriented x3 GENERAL APPEARANCE: ill appearing NUTRITIONAL APPEARANCE: cachectic and thin Eye: COMMON NORMALS: Equal, round and reactive pupils present and EOMs intact bilaterally PUPIL: Yes Equal, round and reactive pupils present Neck/C-Spine: COMMON NORMALS: no JVD Chest: COMMONS NORMALS: normal inspection of the chest Resp: COMMON NORMALS: normal respiratory effort, No retractions and No use of accessory muscles AUSCULTATION: breath sounds absent on th left Cardio: COMMON NORMALS: no JVD, S1 normal heart sound present and S2 normal heart sound present RATE: tachycardic HEART SOUNDS: S1 normal heart sound present and S2 normal heart sound present GI: COMMON NORMALS: Normal to inspection, nondistended, normoactive bowel sounds present, Soft to palpation, non-tender and No hepatosplenomegaly present PALPATION: Yes Soft to palpation and Yes No hepatosplenomegaly present Extremity: COMMON NORMALS: capillary refill normal, no clubbing, cyanosis or edema and no pedal edema Neuro: COMMON NORMALS: patient oriented x3, CN's II-XII intact bilaterally, moves all extremities and no focal motor deficits Psych: COMMON NORMALS: mental status grossly normal Urinary Catheter Management^: Ramos: Cath Placed During This Visit: yes Reason for Continuing Indwelling Catheter: Acute Urinary Retention or Obstruction Urinary Catheter Date of Insertion: 04/20/20 Urinary Catheter Time of Insertion: 04:00 Data : 04/20/20 08:26 04/20/20 04:42 Micro: Microbiology 04/20/20 10:39 Blood Culture - Preliminary Blood SPECIMEN COLLECTED 04/20/20 10:46 Blood Culture - Preliminary Blood SPECIMEN COLLECTED A&P Assessment and plan (1) Acute respiratory failure with hypoxia: -Acute hypoxic respiratory failure, with encephalopathy secondary to postobstructive pneumonia, loculated left pleural effusion, parapneumonic effusion, COPD -Has history of 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, PDL 1 positivity, last round of chemotherapy was April 2019 with carboplatin/Taxol/Keytruda, had a PET scan which showed that cancer was responsive, but patient did not follow-up with subsequent cycles of chemotherapy due to concerns for side effects, nor did he want radiation therapy -Patient with 1 year without follow-up -Presented 2 weeks ago with this postobstructive pneumonia, left AGAINST MEDICAL ADVICE Plan: -Continue broad-spectrum antibiotics vancomycin, Zosyn, azithromycin -Continue IV fluids -Nebulizer treatments -Sputum cultures, blood cultures, urine bacterial antigen -patient is DNR/DNI -Patient is adamant about going home -I advised patient that he is in no condition to go home without a plan, if we do not have a plan for him, he will succumb to his infection, and have a higher morbidity and mortality, and likely suffer, likely come back to the ER, likely have aggressive interventions, and again have a high morbidity and mortality and suffering For his future directives I have offered patient 3 options 1.) Medical intervention: I have spoken to Dr. Chapa, he likely will require a lung biopsy,with cytogenetic paneling, to see if he is a candidate for immunotherapy. I spoke to Dr. Martin, with his postobstructive pneumonia, he requires a bronchoscopy. With his loculated left pleural effusion, and concern for parapneumonic effusion, he will require thoracocentesis, a Pleurx catheter placement, broad-spectrum antibiotics, placement to the ICU, placement on a ventilator, this option does carry a risk of morbidity and mortality. But he is 64, he could do well with medical interventions, we could improve his longevity of life, but he would have to accept the risk associated with medical interventions. Patient is adamant that he does not want this interventions, understands risk and benefits, voiced understanding, all questions answered, does not want medical interventions, but will have family meeting 2.) Hospice, would allow him to go home, we would treat his pain, treat his suffering, give him oxygen, give morphine for pain, Ativan for anxiety we could try to treat him with oral antibiotics, but likely he would succumb to his infection, but we would make him as comfortable as possible, and ease his pain and ease his suffering. Patient states that he is wanted to go home and , will have a family meeting this afternoon Status: Acute (2) Altered mental status: Status: Acute (3) Recurrent left pleural effusion: Status: Acute (4) Squamous cell lung cancer: Status: Acute (5) Lung mass: Status: Acute (6) Severe muscle deconditioning: Status: Acute (7) Sarcopenia: Status: Acute (8) DNR (do not resuscitate): Status: Acute (9) Postobstructive pneumonia: Status: Acute (10) Parapneumonic effusion: Status: Acute (11) CHF (congestive heart failure): History of systolic heart failure, last echo in 2009 showed ejection fraction of 45%- Status: Acute (12) CAD (coronary artery disease): Status post stenting to left circumflex in 2009- Status: Acute Additional A&P Information Squamous cell lung cancer Patient has refused chemotherapy and home health Family is requesting home hospice Patient carries guarded prognosis with worsening of pleural effusion Family has been updated and has good insight to his condition Severe malnourishment with Sarcopenia Consistent carb diet with supplement CODE STATUS DNR/DNI Consistent carb diet Case management consulted Attestations Medical Necessity Statement*: Patient requires continued hospitalization for acute respiratory failure with hypoxia, Coding Level of Care Code Acute 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
[2020-04-20] MEDS: ipratropium-albuterol 3 mL Neb INHALATION ×2 (15:23→19:55)
[2020-04-20 17:07] LABS: Glucose Point of Care 116 mg/dL (70-110)
[2020-04-20 21:38] LABS: Glucose Point of Care 134 mg/dL (70-110)
[2020-04-21] VITALS (14 sets, daily range): BP systolic 106–126; BP diastolic 49–69; PULSE 83–90; RESP 12–24; TEMP 36.3–36.5; O2SAT 96–100
[2020-04-21] MEDS: ipratropium-albuterol 3 mL Neb INHALATION ×4 (03:05→19:53)
[2020-04-21 06:06] LABS: Basophils % 0.4 %; Eosinophils # 0.2 10^3/uL (0.0-0.8); Eosinophils % 1.6 %; Hematocrit 30.5 % (42.0-52.0); Hemoglobin 8.9 g/dL (11.7-16.6); Lymphocytes # 1.5 10^3/uL (0.8-4.8); Lymphocytes % 14.7 %; Mean Corpuscular HGB Conc 29.2 g/dL (30.0-36.0); Mean Corpuscular Hemoglobin 24.4 pg (28.0-34.0); Mean Corpuscular Volume 83.6 fL (80-94); Mean Platelet Volume 9.1 fL (7.4-10.4); Monocytes # 0.6 10^3/uL (0.2-0.9); Monocytes % 5.9 %; Neutrophils # 7.9 10^3/uL (1.8-7.7); Neutrophils % 76.9 %; Nucleated Red Blood Cells % 0 %; Platelet Count 362 10^3/cmm (130-400); Red Blood Count 3.65 10^6/uL (4.1-5.3); Red Cell Distribution Width 17.1 % (12.1-15.1); White Blood Count 10.3 10^3/uL (4.0-10.0)
[2020-04-21 06:31] LABS: Alanine Aminotransferase < 5 U/L (0-41); Albumin Level 2.2 g/dL (3.5-5.2); Alkaline Phosphatase 159 IU/L (40-130); Anion Gap 13.7 (5-19); Aspartate Amino Transferase 8 U/L (0-40); Blood Urea Nitrogen 7 mg/dL (8-23); Calcium 10.4 mg/dL (8.5-10.5); Carbon Dioxide 27 mmol/L (22-29); Chloride 96 mmol/L (98-107); Glomerular Filtration Rate 478.9 mL/min (90-130); Glucose 123 mg/dL (65-115); Magnesium 1.4 mg/dL (1.7-2.3); Osmolality Calculated 273 mOsm/kg (285-295); Phosphorus 3.4 mg/dL (2.5-4.5); Potassium 3.7 mmol/L (3.5-5.1); Sodium 133 mmol/L (136-145); Total Bilirubin 0.2 mg/dL (0.15-1.2); Total Protein 5.2 g/dL (6.6-8.7)
[2020-04-21 07:03] LABS: Glucose Point of Care 138 mg/dL (70-110)
[2020-04-21] MEDS: tamsulosin 0.4 mg Capsule PO (07:59)
[2020-04-21] MEDS: HYDROcodone-acetaminophen 10-325 mg Tablet 1 TAB PO ×3 (07:59→23:40)
[2020-04-21] MEDS: sennosides-docusate Tablet 1 TAB PO (07:59)
[2020-04-21] MEDS: sodium chloride 0.9% 1,000 ML 100 ML IV ×2 (07:59→22:27)
[2020-04-21] MEDS: azithromycin 500 MG in sodium chloride 0.9% 250 ML 250 MG IV (11:01)
--- NOTE | 2020-04-21 11:24 | PC.CHAP ---
Pastoral Care Encounter/Spiritual Assessment Type of Contact [] Declined parking meter attendant visit [] Patient/Family/Request visit [] Outpatient visit [] Follow-up visit [] Physician referral [] Code/Alert [] Routine visit [] Staff referral [] Actively dying [x] Patient sleeping [] Family support [] [] Out of room [] Palliative care [] [] Receiving care in room [] Pre-surgical visit [] Trauma [] Long length of stay [] ICU visit [] Other: Relational/Emotional Strength [] Patient feels connected with others/family/visitors/staff [] Distress [] Loneliness/isolation [] Abandonment Spirituality of Patient [] Person of Kiesha [] Attends Amish of their Kiesha [] Believes in Prayer [] Reads Bible or Worship materials [] There are Spiritual issues to be addressed Fur Trimming Machine Operator Interventions [] Prayer [] Active listening [] Non-anxious presence [] Spiritual/emotional support [] Crisis/trauma care [] Spiritual counseling [] Bereavement support [] Provided bereavement packet [] Provided Bible/devotional materials [] Provided toy/stuffed animal, coloring book to patient or family member [] Provided Communion [] Anointing/[place] [] Salvation [x] Completed spiritual assessment [] Other: Impact on Illness or Injury [] Angry [] Fearful [] Anxious [] Often cries [] Exhaustion [] Unable to work [] Unable to attend yazdanism [] Unable to walk/stand [] Unable to read [] Unable to drive [] Unable to eat/drink [] Unable to sleep [] Unable to be with family [] Patient intubated [] Other: Summary Time spent with patient
[2020-04-21] MEDS: vancomycin 1,000 MG in sodium chloride 0.9% 250 ML 250 MG IV ×2 (12:30→23:40)
--- NOTE | 2020-04-21 13:27 | P.PN_ITS ---
Subjective Subjective: Interval history: This morning patient is sitting up in bed, has no complaints, no chest pain, no shortness of breath, no fevers, he prefers going home on hospice, but does state that his family wants him to have surgical intervention, is agreeable to hospice coming by and seeing him advised the risk and benefits, voiced understanding, agreed to home with hospice Vitals/I&O/Wt Last Vital Signs Temp 97.6 F 04/21/20 08:00 Pulse 87 04/21/20 08:00 Resp 16 04/21/20 08:00 BP 126/69 04/21/20 08:00 Pulse Ox 100 04/21/20 08:00 04/20/20 04/21/20 04/21/20 22:59 06:59 14:59 Intake Total 1230 / 1930 350 / 2280 970 / 970 Output Total 550 / 550 Balance 1230 / 1930 -200 / 1730 970 / 970 Weight last 48 hrs Weight 63.503 kg Physical Exam Const: COMMON NORMALS: no acute distress and patient oriented x3 HENMT: COMMON NORMALS: normocephalic HEAD & SCALP: normocephalic Neck/C-Spine: COMMON NORMALS: no JVD Resp: COMMON NORMALS: normal respiratory effort, No retractions and No use of accessory muscles AUSCULTATION: breath sounds absent on th left Cardio: COMMON NORMALS: no JVD, regular rate, regular rhythm, S1 normal heart sound present and S2 normal heart sound present RATE: regular rate RHYTHM: regular rhythm HEART SOUNDS: S1 normal heart sound present and S2 normal heart sound present GI: COMMON NORMALS: Normal to inspection, nondistended, normoactive bowel sounds present, Soft to palpation, non-tender, No hepatosplenomegaly present, no masses and no bruits PALPATION: Yes Soft to palpation and Yes No hepatosplenomegaly present Extremity: COMMON NORMALS: capillary refill normal, no clubbing, cyanosis or edema, no calf tenderness and no pedal edema Neuro: COMMON NORMALS: patient oriented x3 Psych: COMMON NORMALS: mental status grossly normal Urinary Catheter Management^: Ramos: Cath Placed During This Visit: yes Reason for Continuing Indwelling Catheter: Acute Urinary Retention or Obstruction Urinary Catheter Date of Insertion: 04/20/20 Urinary Catheter Time of Insertion: 04:00 Data : 04/21/20 05:07 04/21/20 05:07 Micro: Microbiology 04/20/20 10:39 Blood Culture - Preliminary Blood NEGATIVE TO DATE 04/20/20 10:46 Blood Culture - Preliminary Blood NEGATIVE TO DATE 04/20/20 19:36 Bacterial Antigens - Final Urine,Clean Catch A&P Assessment and plan (1) Acute respiratory failure with hypoxia: -Acute hypoxic respiratory failure, with encephalopathy secondary to postobstructive pneumonia, loculated left pleural effusion, parapneumonic effusion, COPD -Has history of 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, PDL 1 positivity, last round of chemotherapy was April 2019 with carboplatin/Taxol/Keytruda, had a PET scan which showed that cancer was responsive, but patient did not follow-up with subsequent cycles of chemotherapy due to concerns for side effects, nor did he want radiation therapy -Patient with 1 year without follow-up -Presented 2 weeks ago with this postobstructive pneumonia, left AGAINST MEDICAL ADVICE Plan: -Continue broad-spectrum antibiotics vancomycin, Zosyn, azithromycin -Continue IV fluids -Nebulizer treatments -Sputum cultures, blood cultures, urine bacterial antigen -patient is DNR/DNI -Patient is adamant about going home -I advised patient that he is in no condition to go home without a plan, if we do not have a plan for him, he will succumb to his infection, and have a higher morbidity and mortality, and likely suffer, likely come back to the ER, likely have aggressive interventions, and again have a high morbidity and mortality and suffering For his future directives I have offered patient 3 options 1.) Medical intervention: I have spoken to Dr. Chapa, he likely will require a lung biopsy,with cytogenetic paneling, to see if he is a candidate for immunotherapy. I spoke to Dr. Martin, with his postobstructive pneumonia, he requires a bronchoscopy. With his loculated left pleural effusion, and concern for parapneumonic effusion, he will require thoracocentesis, a Pleurx catheter placement, broad-spectrum antibiotics, placement to the ICU, placement on a ventilator, this option does carry a risk of morbidity and mortality. But he is 64, he could do well with medical interventions, we could improve his longevity of life, but he would have to accept the risk associated with medical interventions. Patient is adamant that he does not want this interventions, understands risk and benefits, voiced understanding, all questions answered, does not want medical interventions 2.) Hospice, would allow him to go home, we would treat his pain, treat his suffering, give him oxygen, give morphine for pain, Ativan for anxiety we could try to treat him with oral antibiotics, but likely he would succumb to his infection, but we would make him as comfortable as possible, and ease his pain and ease his suffering. Patient states that he is wanted to go home and -There was a family meeting yesterday afternoon, patient really wants to go home, home with hospice -I spoke with patient this morning, who agrees home with hospice, voiced un derstanding, all questions answered, discussed risk and benefits, voiced understanding, all questions answered Status: Acute (2) Altered mental status: Status: Acute (3) Recurrent left pleural effusion: Status: Acute (4) Squamous cell lung cancer: Status: Acute (5) Lung mass: Status: Acute (6) Severe muscle deconditioning: Status: Acute (7) Sarcopenia: Status: Acute (8) DNR (do not resuscitate): Status: Acute (9) Postobstructive pneumonia: Status: Acute (10) Parapneumonic effusion: Status: Acute (11) CHF (congestive heart failure): History of systolic heart failure, last echo in 2009 showed ejection fraction of 45%- Status: Acute (12) CAD (coronary artery disease): Status post stenting to left circumflex in 2010- Status: Acute Additional A&P Information Squamous cell lung cancer Patient has refused chemotherapy and home health Family is requesting home hospice Patient carries guarded prognosis with worsening of pleural effusion Family has been updated and has good insight to his condition Severe malnourishment with Sarcopenia Consistent carb diet with supplement CODE STATUS DNR/DNI Consistent carb diet Case management consulted Attestations Medical Necessity Statement*: Patient requires continued hospitalization for acute respiratory failure, secondary obstructive pneumonia, lung cancer, proceeding to hospice 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
[2020-04-21 17:35] LABS: Glucose Point of Care 185 mg/dL (70-110)
--- NOTE | 2020-04-21 18:21 | NUR.SHIFT ---
SHIFT SUMMARY PATIENT'S PAIN HAS BEEN CONTROLLED TODAY. UNABLE TO GET AHOLD OF FAMILY AT THIS TIME TO DISCUSS HOSPICE CARE. GOOD URINE OUTPUT, BUT VERY DARK TANGELA. MAINTAINING ON 3LNC. CURRENTLY RESTING IN BED.
[2020-04-21 21:54] LABS: Glucose Point of Care 136 mg/dL (70-110)
[2020-04-21 22:38] LABS: Vancomycin Trough 11.6 ug/mL (10-15)
[2020-04-22] VITALS (11 sets, daily range): BP systolic 108–127; BP diastolic 61–74; PULSE 85–95; RESP 16–22; TEMP 36.4–36.6; O2SAT 97–100
[2020-04-22] MEDS: ipratropium-albuterol 3 mL Neb INHALATION ×4 (03:21→20:31)
[2020-04-22 03:36] LABS: Basophils % 0.2 %; Eosinophils # 0.2 10^3/uL (0.0-0.8); Eosinophils % 2.2 %; Hematocrit 27.8 % (42.0-52.0); Hemoglobin 8.5 g/dL (11.7-16.6); Lymphocytes # 1.6 10^3/uL (0.8-4.8); Lymphocytes % 16.5 %; Mean Corpuscular HGB Conc 30.6 g/dL (30.0-36.0); Mean Corpuscular Hemoglobin 24.9 pg (28.0-34.0); Mean Corpuscular Volume 81.5 fL (80-94); Mean Platelet Volume 8.8 fL (7.4-10.4); Monocytes # 0.5 10^3/uL (0.2-0.9); Monocytes % 5.6 %; Neutrophils # 7.2 10^3/uL (1.8-7.7); Neutrophils % 75.1 %; Nucleated Red Blood Cells % 0 %; Platelet Count 343 10^3/cmm (130-400); Red Blood Count 3.41 10^6/uL (4.1-5.3); Red Cell Distribution Width 16.9 % (12.1-15.1); White Blood Count 9.6 10^3/uL (4.0-10.0)
[2020-04-22 04:30] LABS: Alanine Aminotransferase < 5 U/L (0-41); Albumin Level 2.4 g/dL (3.5-5.2); Alkaline Phosphatase 145 IU/L (40-130); Anion Gap 11.8 (5-19); Aspartate Amino Transferase 7 U/L (0-40); Blood Urea Nitrogen 7 mg/dL (8-23); Calcium 10.4 mg/dL (8.5-10.5); Carbon Dioxide 28 mmol/L (22-29); Chloride 99 mmol/L (98-107); Globulin 2.5 g/dL (1.3-4.6); Glomerular Filtration Rate 478.9 mL/min (90-130); Glucose 132 mg/dL (65-115); Magnesium 1.3 mg/dL (1.7-2.3); Osmolality Calculated 278 mOsm/kg (285-295); Phosphorus 3.3 mg/dL (2.5-4.5); Potassium 3.8 mmol/L (3.5-5.1); Sodium 135 mmol/L (136-145); Total Bilirubin 0.2 mg/dL (0.15-1.2); Total Protein 4.9 g/dL (6.6-8.7)
[2020-04-22] MEDS: HYDROcodone-acetaminophen 10-325 mg Tablet 1 TAB PO ×2 (05:41→15:30)
[2020-04-22 06:54] LABS: Glucose Point of Care 139 mg/dL (70-110)
[2020-04-22] MEDS: sennosides-docusate Tablet 1 TAB PO (08:42)
[2020-04-22] MEDS: tamsulosin 0.4 mg Capsule PO (08:42)
[2020-04-22] MEDS: sodium chloride 0.9% 1,000 ML 100 ML IV (08:43)
[2020-04-22] MEDS: azithromycin 500 MG in sodium chloride 0.9% 250 ML 250 MG IV (09:43)
[2020-04-22] MEDS: vancomycin 1,000 MG in sodium chloride 0.9% 250 ML 250 MG IV ×2 (10:19→21:49)
[2020-04-22] MEDS: ondansetron 2 mg/ML SDV 2 mL 4 MG IVP ×2 (10:19→15:32)
[2020-04-22 11:29] LABS: Glucose Point of Care 179 mg/dL (70-110)
--- NOTE | 2020-04-22 11:42 | PM.PN ---
Subjective Subjective: Interval history: Patient has no complaints this morning, no fevers, no chills, no shortness of breath, no lightheaded, dizziness, agrees to proceed with home hospice I was able to call patient's daughter in front of him, on his cell phone, I discussed the case with daughter again, discussed options available, discussed patient's choice of home hospice, all questions answered, voiced understanding, agreed to proceed with home hospice likely tomorrow Vitals/I&O/Wt Last Vital Signs Temp 97.9 F 04/22/20 08:00 Pulse 90 04/22/20 08:21 Resp 18 04/22/20 08:15 BP 124/74 04/22/20 08:00 Pulse Ox 98 04/22/20 08:15 04/21/20 04/22/20 04/22/20 22:59 06:59 14:59 Intake Total 1440 / 3010 590 / 3600 1240 / 1240 Output Total 600 / 600 350 / 950 Balance 840 / 2410 240 / 2650 1240 / 1240 Physical Exam Const: COMMON NORMALS: no acute distress and patient oriented x3 GENERAL APPEARANCE: ill appearing NUTRITIONAL APPEARANCE: cachectic and thin HENMT: COMMON NORMALS: normocephalic HEAD & SCALP: normocephalic Neck/C-Spine: COMMON NORMALS: no JVD Chest: COMMONS NORMALS: normal inspection of the chest Resp: COMMON NORMALS: normal respiratory effort, No retractions, No use of accessory muscles and clear to auscultation bilaterally AUSCULTATION: clear to auscultation bilaterally and breath sounds absent on th left Cardio: COMMON NORMALS: no JVD, regular rate, regular rhythm, S1 normal heart sound present and S2 normal heart sound present RATE: regular rate and tachycardic RHYTHM: regular rhythm HEART SOUNDS: S1 normal heart sound present and S2 normal heart sound present GI: COMMON NORMALS: Normal to inspection, nondistended, normoactive bowel sounds present, Soft to palpation, non-tender, No hepatosplenomegaly present, no masses and no bruits PALPATION: Yes Soft to palpation and Yes No hepatosplenomegaly present Extremity: COMMON NORMALS: capillary refill normal, no clubbing, cyanosis or edema, no calf tenderness and no pedal edema Neuro: COMMON NORMALS: patient oriented x3, CN's II-XII intact bilaterally, moves all extremities and no focal motor deficits Psych: COMMON NORMALS: mental status grossly normal Urinary Catheter Management^: Ramos: Cath Placed During This Visit: yes Reason for Continuing Indwelling Catheter: Acute Urinary Retention or Obstruction Urinary Catheter Date of Insertion: 04/20/20 Urinary Catheter Time of Insertion: 04:00 Data : 04/22/20 03:11 04/22/20 03:11 Micro: Microbiology 04/20/20 10:39 Blood Culture - Preliminary Blood NEGATIVE TO DATE 04/20/20 10:46 Blood Culture - Preliminary Blood NEGATIVE TO DATE A&P Assessment and plan (1) Acute respiratory failure with hypoxia: -Acute hypoxic respiratory failure, with encephalopathy secondary to postobstructive pneumonia, loculated left pleural effusion, parapneumonic effusion, COPD -Has history of 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, PDL 1 positivity, last round of chemotherapy was April 2019 with carboplatin/Taxol/Keytruda, had a PET scan which showed that cancer was responsive, but patient did not follow-up with subsequent cycles of chemotherapy due to concerns for side effects, nor did he want radiation therapy -Patient with 1 year without follow-up -Presented 2 weeks ago with this postobstructive pneumonia, left AGAINST MEDICAL ADVICE Plan: -Continue broad-spectrum antibiotics vancomycin, Zosyn, azithromycin -Continue IV fluids -Nebulizer treatments -Sputum cultures, blood cultures, urine bacterial antigen -patient is DNR/DNI -Patient is adamant about going home -I advised patient that he is in no condition to go home without a plan, if we do not have a plan for him, he will succumb to his infection, and have a higher morbidity and mortality, and likely suffer, likely come back to the ER, likely have aggressive interventions, and again have a high morbidity and mortality and suffering For his future directives I have offered patient 3 options 1.) Medical intervention: I have spoken to Dr. Chapa, he likely will require a lung biopsy,with cytogenetic paneling, to see if he is a candidate for immunotherapy. I spoke to Dr. Martin, with his postobstructive pneumonia, he requires a bronchoscopy. With his loculated left pleural effusion, and concern for parapneumonic effusion, he will require thoracocentesis, a Pleurx catheter placement, broad-spectrum antibiotics, placement to the ICU, placement on a ventilator, this option does carry a risk of morbidity and mortality. But he is 64, he could do well with medical interventions, we could improve his longevity of life, but he would have to accept the risk associated with medical interventions. Patient is adamant that he does not want this interventions, understands risk and benefits, voiced understanding, all questions answered, does not want medical interventions 2.) Hospice, would allow him to go home, we would treat his pain, treat his suffering, give him oxygen, give morphine for pain, Ativan for anxiety we could try to treat him with oral antibiotics, but likely he would succumb to his infection, but we would make him as comfortable as possible, and ease his pain and ease his suffering. Patient states that he is wanted to go home and -There was a family meeting yesterday afternoon, patient really wants to go home, home with hospice -I spoke with patient this morning, who agrees home with hospice, voiced understanding, all questions answered, discussed risk and benefits, voiced understanding, all questions answered -Patient is proceeding with option 2, home hospice, spoke to patient's daughter Madeline, agrees, discussed risk and benefits, voiced understanding, all questions answered Status: Acute (2) Altered mental status: Status: Acute (3) Recurrent left pleural effusion: Status: Acute (4) Squamous cell lung cancer: Status: Acute (5) Lung mass: Status: Acute (6) Severe muscle deconditioning: Status: Acute (7) Sarcopenia: Status: Acute (8) DNR (do not resuscitate): Status: Acute (9) Postobstructive pneumonia: Status: Acute (10) Parapneumonic effusion: Status: Acute (11) CHF (congestive heart failure): History of systolic heart failure, last echo in 2009 showed ejection fraction of 45%- Status: Acute (12) CAD (coronary artery disease): Status post stenting to left circumflex in 2010- Status: Acute Additional A&P Information Squamous cell lung cancer Patient has refused chemotherapy and home health Family is requesting home hospice Patient carries guarded prognosis with worsening of pleural effusion Family has been updated and has good insight to his condition Severe malnourishment with Sarcopenia Consistent carb diet with supplement CODE STATUS DNR/DNI Consistent carb diet Case management consulted Attestations Medical Necessity Statement*: 64-year-old male with acute respiratory failure sec to postobstructive pneumonia, squamous cell carcinoma 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
--- NOTE | 2020-04-22 14:33 | PC.CHAP ---
Pastoral Care Encounter/Spiritual Assessment Type of Contact [] Declined combine operator visit [] Patient/Family/Request visit [] Outpatient visit [] Follow-up visit [] Physician referral [] Code/Alert [X] Routine visit [] Staff referral [] Actively dying [] Patient sleeping [] Family support [] [] Out of room [] Palliative care [] [] Receiving care in room [] Pre-surgical visit [] Trauma [] Long length of stay [] ICU visit [] Other: Relational/Emotional Strength [] Patient feels connected with others/family/visitors/staff [] Distress [] Loneliness/isolation [] Abandonment Spirituality of Patient [] Person of Kiesha [] Attends Hoahaoism of their Kiesha [] Believes in Prayer [] Reads Bible or Mosque materials [] There are Spiritual issues to be addressed Digital Content Specialist Interventions [X] Prayer [X] Active listening [X] Non-anxious presence [X] Spiritual/emotional support [] Crisis/trauma care [] Spiritual counseling [] Bereavement support [] Provided bereavement packet [] Provided Bible/devotional materials [] Provided toy/stuffed animal, coloring book to patient or family member [] Provided Communion [] Anointing/[place] [] Salvation [] Completed spiritual assessment [] Other: Impact on Illness or Injury [] Angry [] Fearful [] Anxious [] Often cries [] Exhaustion [] Unable to work [] Unable to attend anabaptism [] Unable to walk/stand [] Unable to read [] Unable to drive [] Unable to eat/drink [] Unable to sleep [] Unable to be with family [] Patient intubated [] Other: Summary Time spent with patient
[2020-04-22 17:12] LABS: Glucose Point of Care 148 mg/dL (70-110)
[2020-04-22 21:25] LABS: Glucose Point of Care 136 mg/dL (70-110)
[2020-04-22] MEDS: ALPRAZolam 0.5 mg Tablet PO (22:16)
[2020-04-23] VITALS (9 sets, daily range): BP systolic 107–126; BP diastolic 63–70; PULSE 84–100; RESP 16–24; TEMP 36.3–36.9; O2SAT 95–98
[2020-04-23] MEDS: ipratropium-albuterol 3 mL Neb INHALATION ×2 (01:59→08:26)
[2020-04-23 05:41] LABS: Basophils % 0.3 %; Eosinophils # 0.2 10^3/uL (0.0-0.8); Eosinophils % 1.3 %; Hematocrit 29.9 % (42.0-52.0); Hemoglobin 8.7 g/dL (11.7-16.6); Lymphocytes # 1.4 10^3/uL (0.8-4.8); Lymphocytes % 12.5 %; Mean Corpuscular HGB Conc 29.1 g/dL (30.0-36.0); Mean Corpuscular Hemoglobin 23.8 pg (28.0-34.0); Mean Corpuscular Volume 81.7 fL (80-94); Mean Platelet Volume 9.2 fL (7.4-10.4); Monocytes # 0.5 10^3/uL (0.2-0.9); Monocytes % 4.5 %; Neutrophils % 80.9 %; Nucleated Red Blood Cells % 0 %; Platelet Count 386 10^3/cmm (130-400); Red Blood Count 3.66 10^6/uL (4.1-5.3); Red Cell Distribution Width 16.8 % (12.1-15.1); White Blood Count 11.2 10^3/uL (4.0-10.0)
[2020-04-23 05:58] LABS: Alanine Aminotransferase < 5 U/L (0-41); Albumin Level 2.5 g/dL (3.5-5.2); Alkaline Phosphatase 169 IU/L (40-130); Anion Gap 10.5 (5-19); Aspartate Amino Transferase 9 U/L (0-40); Blood Urea Nitrogen 4 mg/dL (8-23); Calcium 10.4 mg/dL (8.5-10.5); Carbon Dioxide 31 mmol/L (22-29); Chloride 99 mmol/L (98-107); Globulin 2.7 g/dL (1.3-4.6); Glomerular Filtration Rate 478.9 mL/min (90-130); Glucose 114 mg/dL (65-115); Magnesium 1.3 mg/dL (1.7-2.3); Osmolality Calculated 281 mOsm/kg (285-295); Phosphorus 2.6 mg/dL (2.5-4.5); Potassium 3.5 mmol/L (3.5-5.1); Sodium 137 mmol/L (136-145); Total Bilirubin 0.2 mg/dL (0.15-1.2); Total Protein 5.2 g/dL (6.6-8.7)
[2020-04-23 07:09] LABS: Glucose Point of Care 133 mg/dL (70-110)
[2020-04-23] MEDS: tamsulosin 0.4 mg Capsule PO (09:02)
[2020-04-23] MEDS: sennosides-docusate Tablet 1 TAB PO (09:02)
--- NOTE | 2020-04-23 10:57 | PM.DCS ---
Discharge Providers Date of Admission: 04/19/20 20:31 Date of Discharge: April 23, 2020 Attending Provider at Admission: Joelle Seaman MD Attending Provider at Discharge: Ivan Barakat MD Primary Care Provider: Bry Bond Diagnoses at Discharge Discharge Diagnosis (1) Acute respiratory failure with hypoxia: Status: Acute (2) Altered mental status: Status: Acute (3) Recurrent left pleural effusion: Status: Acute (4) Squamous cell lung cancer: Status: Acute Problem details: 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+ (5) Lung mass: Status: Acute (6) Severe muscle deconditioning: Status: Acute (7) Sarcopenia: Status: Acute (8) DNR (do not resuscitate): Status: Acute (9) Postobstructive pneumonia: Status: Acute (10) Parapneumonic effusion: Status: Acute (11) CHF (congestive heart failure): Status: Acute (12) CAD (coronary artery disease): Status: Acute Reason for Visit Reason for Visit: WEAKNESS Hospital Course Discharge Summary: This is a 64-year-old male with a past medical history of COPD, 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 due to complaints of shortness of breath Patient was admitted to [facility] for acute respiratory failure with hypoxia with encephalopathy secondary to postobstructive pneumonia, loculated left pleural effusion, parapneumonic effusion, pneumonia, COPD -He Has history of 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, PDL 1 positivity, last round of chemotherapy was April 2019 with carboplatin/Taxol/Keytruda, had a PET scan which showed that cancer was responsive, but patient did not follow-up with subsequent cycles of chemotherapy due to concerns for side effects, nor did he want radiation therapy -Patient now presented after a year of no treatment, no follow-up with the lung cancer -Presented 2 weeks ago with this postobstructive pneumonia, left AGAINST MEDICAL ADVICE, at that point his x-ray showed complete whiteout of left lung, chest x-ray on admission again shows complete opacification of left hemithorax with volume loss and hyperinflation of the right lung with shift of the mediastinum to the left. -Patient was admitted to [facility], received broad-spectrum antibiotic therapy, vancomycin, Zosyn, azithromycin, IV fluids, nebulizer treatments, oxygen therapy, remained on 3 L throughout his admission -blood cultures negative so far, urine bacterial antigens negative so far -Ct angio from 03/30/2020 ER visit showed Pulmonary arteries: High-grade stenosis of the superior lingual segmental pulmonary artery (see series 2, image 244). There is adequate contrast opacification of the pulmonary arteries for evaluation to the subsegmental level. There is no filling defect to suggest embolism. Lungs: Multiple peripherally enhancing lung masses with surrounding consolidation. The largest is a left lower lobe mass measuring 6.3 x 5.4 cm on axial series 2, image 323. There are additional lesions in the left upper lobe and in the left hilum. There is severe upper lung predominant centrilobular emphysema. There is a macro lobulated spiculated mass in the right upper lobe measuring 3.2 x 2.2 cm on axial series 2, image 211. There is mild interlobular septal thickening in the right lung base. There is diffuse central bronchial wall thickening in the right lung. Pleural space: Moderate size loculated left pleural effusion. Trace right pleural effusion. Lymph nodes: No enlarged discrete mediastinal or hilar nodes. There is confluent soft tissue density in the left hilum extending into the subcarinal region. 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 Chapa, who advised that if patient wanted intervention, it would be best to take another lung biopsy to do genetic marker testing to see if he was a candidate for immunotherapy, they can consider chemo or radiation therapy if patient needs agreed -I spoke to Dr. Martin, who advised that if patient wanted medical intervention he would need a bronchoscopy with biopsies and clean up, likely placed on the ventilator, likely require a chest tube placement with continual drainage of effusion ICU admission, prolonged antibiotics Throughout his hospitalization, patient reiterated to me that he wanted to go home, he did not want to be cut open, he did not want surgery. -I advised patient that he is in no condition to go home without a plan, if we do not have a plan for him, he will succumb to his infection, and have a higher morbidity and mortality, and likely suffer, likely come back to the ER, likely have aggressive interventions, and again have a high morbidity and mortality and suffering associated I offered patient 3 options 1.) Medical intervention: I have spoken to Dr. Chapa, he likely will require a lung biopsy,with cytogenetic paneling, to see if he is a candidate for immunotherapy. I spoke to Dr. Martin, with his postobstructive pneumonia, he requires a bronchoscopy. With his loculated left pleural effusion, and concern for parapneumonic effusion and malignant pleural effusion, he will require thoracocentesis, a Pleurx catheter placement, broad-spectrum antibiotics, placement to the ICU, placement on a ventilator, this option does carry a risk of morbidity and mortality. But he is 64, he could do well with medical interventions, we could improve his longevity of life, but he would have to accept the risk associated with medical interventions. Patient is adamant that he does not want this interventions, understands risk and benefits, voiced understanding, all questions answered, does not want medical interventions 2.) Hospice, would allow him to go home, we would treat his pain, treat his suffering, give him oxygen, give morphine for pain, Ativan for anxiety we could try to treat him with oral antibiotics, but likely he would succumb to his infection, but we would make him as comfortable as possible, and ease his pain and ease his suffering. Patient states that he is wanted to go home and . But given the severity of his postobstructive pneumonia and parapneumonic effusion, he would likely succumb to his infection -There was a family meeting yesterday afternoon, patient really wants to go home, home with hospice -I spoke with patient this morning, who agrees home with hospice, voiced understanding, all questions answered, discussed risk and benefits, voiced understanding, all questions answered I had a family meeting with patient's daughter, patient's , and patient. All options above were discussed, all questions answered, all risks and benefits discussed, voiced understanding, all questions answered. Patient has agreed to home with hospice, understands risks and benefits, understands risk of his severe illness and postobstructive pneumonia, voiced understanding, all questions answered. I advised patient that given the severity of his postobstructive pneumonia, and parapneumonic fusion, oral antibiotics, are not not ideal. He would need IV antibiotics, and would need surgical intervention such a as bronchoscopy to help alleviate obstruction, and will need a chest tube to help drain the infection. However patient did not want prolonged IV antibiotics, did not want a bronchoscopy, did not want a chest tube. I advised that we can try oral antibiotics, but they will likely not have a significant benefit or improvement to his infection given its severity. Patient voiced understanding, all questions answered, agreed to proceed home with hospice with oral antibiotics. Patient was discharged on home on hospice. On the morning of discharge, patient was much more tachypneic than usual, had some intercostal retractions, nasal flaring, mild respiratory distress. Physical Exam Const: COMMON NORMALS: no acute distress and patient oriented x3 HENMT: COMMON NORMALS: normocephalic HEAD & SCALP: normocephalic Neck/C-Spine: COMMON NORMALS: no JVD Resp: COMMON NORMALS: normal respiratory effort EFFORT & INSPECTION: Yes able to speak in complete sentences, Yes tachypneic, Yes Actively coughing and Yes uses accessory muscles AUSCULTATION: diminished lung sounds on the left Cardio: COMMON NORMALS: no JVD, regular rate, regular rhythm, S1 normal heart sound present and S2 normal heart sound present RATE: regular rate RHYTHM: regular rhythm HEART SOUNDS: S1 normal heart sound present and S2 normal heart sound present GI: COMMON NORMALS: Normal to inspection, nondistended, normoactive bowel sounds present, Soft to palpation, non-tender, No hepatosplenomegaly present, no masses and no bruits PALPATION: Yes Soft to palpation and Yes No hepatosplenomegaly present Extremity: COMMON NORMALS: capillary refill normal, no clubbing, cyanosis or edema, no calf tenderness and no pedal edema Neuro: COMMON NORMALS: patient oriented x3 Psych: COMMON NORMALS: mental status grossly normal Urinary Catheter Management^: Ramos: Cath Placed During This Visit: yes Reason for Continuing Indwelling Catheter: Other Urinary Catheter Date of Insertion: 04/20/20 Urinary Catheter Time of Insertion: 04:00 Discharge Data Data Completed and Pending: Completed Studies During Hospitalization Category Date Time Status CT head wo con* 7 0450 Urgent Cat Scan 04/19/20 19:[address] lumbar spine w o con* [id number] Urgen t Cat Scan 04/19/20 20:[address] thoracic spin wo con* [id number] Urge nt Cat Scan 04/19/20 20:56 Completed XR chest 1V tanmay ble [id number] Stat Exams 04/19/20 18:58 Completed Pending at discharge Category Date Time Status Blood Culture Sta t Lab 04/20/20 10:39 Results Labs from last 24 hours 04/23/20 04/23/20 04/23/20 07:02 04:36 04:36 WBC 11.2 H RBC 3.66 L Hgb 8.7 L Hct 29.9 L MCV 81.7 MCH 23.8 L MCHC 29.1 L RDW 16.8 H Plt Count 386 MPV 9.2 Neut % (Auto) 80.9 Lymph % (Auto) 12.5 Cochran % (Auto) 4.5 Eos % (Auto) 1.3 Baso % (Auto) 0.3 Neut # (Auto) 9.0 H Lymph # (Auto) 1.4 Cochran # (Auto) 0.5 Eos # (Auto) 0.2 Baso # (Auto) 0.0 Nucleated RBC % (a uto) 0 Nucleated RBCs # 0.0 Sodium 137 Potassium 3.5 Chloride 99 Carbon Dioxide 31 H Anion Gap 10.5 BUN 4 L Creatinine 0.2 L GFR Calculation 478.9 H Glucose 114 POC Glucose 133 Calculated Osmolal ity 281 L Calcium 10.4 Phosphorus 2.6 Magnesium 1.3 L Total Bilirubin 0.2 AST 9 ALT < 5 Alkaline Phosphata se 169 H Total Protein 5.2 L Albumin 2.5 L Globulin 2.7 04/22/20 04/22/20 04/22/20 21:18 17:06 11:10 WBC RBC Hgb Hct MCV MCH MCHC RDW Plt Count MPV Neut % (Auto) Lymph % (Auto) Cochran % (Auto) Eos % (Auto) Baso % (Auto) Neut # (Auto) Lymph # (Auto) Cochran # (Auto) Eos # (Auto) Baso # (Auto) Nucleated RBC % (a uto) Nucleated RBCs # Sodium Potassium Chloride Carbon Dioxide Anion Gap BUN Creatinine GFR Calculation Glucose POC Glucose 136 148 179 Calculated Osmolal ity Calcium Phosphorus Magnesium Total Bilirubin AST ALT Alkaline Phosphata se Total Protein Albumin Globulin Vitals: Last Vital Signs Temp 98.4 F 04/23/20 04:00 Pulse 98 04/23/20 08:31 Resp 20 H 04/23/20 08:26 BP 124/68 04/23/20 04:00 Pulse Ox 98 04/23/20 08:26 Discharge Plan Discharge Patient Disposition: Hospice - Home Condition: Stable Prescriptions: New Levaquin 750 mg tablet 750 mg PO DAILY 14 Days Qty: 14 RF: 0 Continued gabapentin 600 mg tablet See Rx Instructions .ROUTE .COMPLEX RF: 0 tamsulosin 0.4 mg capsule 0.4 mg PO DAILY RF: 0 gemfibrozil 600 mg tablet See Rx Instructions .ROUTE .COMPLEX RF: 0 pantoprazole 40 mg tablet,delayed release (DR/EC) 40 mg PO DAILY RF: 0 lisinopril 10 mg tablet See Rx Instructions .ROUTE .COMPLEX RF: 0 Ventolin HFA 90 mcg/actuation HFA aerosol inhaler See Rx Instructions .ROUTE .COMPLEX RF: 0 risperidone 1 mg tablet See Rx Instructions .ROUTE .COMPLEX RF: 0 Symbicort 160-4.5 mcg/actuation HFA aerosol inhaler See Rx Instructions .ROUTE .COMPLEX RF: 0 Narcan 4 mg/actuation spray,non-aerosol 4 mg INTRANASAL .COMPLELX RF: 0 glipizide 10 mg tablet 10 mg PO BID RF: 0 Changed furosemide 40 mg tablet 40 mg PO DAILY 30 Days Qty: 30 RF: 0 Discontinued hydrocodone-acetaminophen 10-325 mg tablet 1 tab PO Q8H PRN (Reason: Moderate Pain (Scale Score 5-6)) RF: 0 alprazolam 0.5 mg tablet 0.5 mg PO TID PRN (Reason: Anxiety) RF: 0 Discharge Orders: Discharge Order (Routine); Ordered 04/23/20 Ordered By: Ivan Barakat Referrals: [facility] [Outside] Bry Bond [Primary Care Provider] - (Call Friday and make an appointment on the next available day. 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
[2020-04-23 10:58] LABS: Glucose Point of Care 169 mg/dL (70-110)
[2020-04-23] MEDS: HYDROcodone-acetaminophen 10-325 mg Tablet 1 TAB PO (12:35)
--- NOTE | 2020-04-23 12:49 | PC.NURSE ---
Linda Brower with [facility] notified of patient's discharge at this time.
[2020-04-23] MEDS: ALPRAZolam 0.5 mg Tablet PO (15:10)
--- NOTE | 2020-04-23 15:30 | PC.NURSE ---
Reviewed patient's discharge with patient at this time. Patient is alert to self. Patient will be discharged on hospice. [place] called and notified that patient was discharged at this time. Patient was discharged with his Ramos Catheter. Patient taken by EMS stretcher.
--- NOTE | 2020-04-24 09:57 | PC.SOCIAL ---
Received cremation paperwork from Omar Ramirez, and communicated with Dr. Chew about signing it. When contact was made with her, I thought she was on schedule, but was scheduled off. I consulted with Director and boss Melanie on what I needed to do in order to get cremation signed quickly, and she also communicated with Dr. Chew as well as Dr. Hardy to see if Dr. Hardy would sign instead since Dr. Chew wasn't available and not on the schedule to work this week. Dr. Hardy agreed to sign, and I took it to her to get signature. Once it was signed, I called back Omar Ramirez to just let them know that Dr. Hardy was the one who signed, but told them that Dr. Chew was aware, and that she would do certificate once it was available online. home acknowledged.
== END 2020-04-23 15:45 | disposition hospice, home (50) | DRG 186 ==
LOC: ER 20:45 → MEDSURG 21:16
PROVIDERS: Admitting Provider Internal Medicine; Emergency Provider Emergency Medicine; PCP Family Medicine; Visit Provider Family Medicine
DX: J90 Pleural effusion, not elsewhere classified (principal); J18.9 Pneumonia, unspecified organism; E43 Unspecified severe protein-calorie malnutrition; J96.01 Acute respiratory failure with hypoxia; C34.90 Malignant neoplasm of unspecified part of unspecified bronchus or lung; J44.0 Chronic obstructive pulmonary disease with (acute) lower respiratory infection; M62.84 Sarcopenia; Z66 Do not resuscitate; Z68.21 Body mass index [BMI] 21.0-21.9, adult; I25.10 Atherosclerotic heart disease of native coronary artery without angina pectoris; I50.9 Heart failure, unspecified; Z95.5 Presence of coronary angioplasty implant and graft; Z92.21 Personal history of antineoplastic chemotherapy; Z51.5 Encounter for palliative care; Z86.73 Personal history of transient ischemic attack (TIA), and cerebral infarction without residual deficits; E11.9 Type 2 diabetes mellitus without complications; M19.90 Unspecified osteoarthritis, unspecified site; Z87.891 Personal history of nicotine dependence
CPT/HCPCS: 12345; 36415; 36416; 51702; 70450; 71045; 72128; 72131; 80048; 80053; 80202; 81003; 82962; 83036; 83605; 83735; 84100; 84145; 85025; 86140; 86403; 87040; 94640; 96372; 96375; 99282; J0456; J0743; J1815; J2405; J3370; J7030; J7050